=== PATIENT | female | born 2000 | race Two or more races ===

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

== ENCOUNTER 2018-06-19 23:15 | Emergency (ER) | payer SELFPAY ==
[2018-06-20 00:10] LABS: URINE HCG POC HCG NEGATIVE (Negative)
[2018-06-20] MEDS: methylPREDNISolone SOD SUCC PF 125 MG/2 ML VIAL. IM (00:26)
[2018-06-20] MEDS: diphenhydrAMINE HCL 25 MG CAPSULE PO (00:26)
== END 2018-06-20 00:50 | disposition home or self-care (01) ==
LOC: ER 23:15
DX: L30.8 Other specified dermatitis (principal)
CPT/HCPCS: 81025; 96372; 99283; J2930; Q0163